=== PATIENT | male | born 1950 | race Caucasian/White ===

== ENCOUNTER 2023-08-14 16:27 | Emergency (ER) | payer MEDICARE, OTHER ==
--- NOTE | 2023-08-14 17:00 | ED Physician Documentation ---
History of Present Illness - Stated complaint Stated Complaint: FALL/LT WRIST PX - Chief complaint Chief Complaint: Trauma Ext - History obtained from History obtained from: Patient, Family - History of Present Illness Timing: Today Pain level max: 6 Pain level now: 5 - Additonal information Additional information: 73-year-old male presents to the emergency department after a fall while playing tennis today. This occurred about 2 hours prior to arrival. Complains of pain to the left wrist. Does not believe he struck his head but did roll backwards onto the court. No loss of consciousness. Not on blood thinners. No neck or back pain. No numbness or tingling. The pain to the left wrist is worse with movement and better with rest. He is right-handed. He is currently undergoing treatment for prostate cancer in a clinical trial at [facility] No seizure activity. No changes in mental status. Review of Systems Constitutional: denies: Fever, Chills GI: denies: Vomiting, Diarrhea Skin: denies: Rash Musculoskeletal: denies: Neck pain, Back pain Neurologic: denies: Focal weakness, Numbness, Seizure, Confused, Altered mental status, Headache, LOC PD PAST MEDICAL HISTORY - Past Medical History Past Medical History: Yes : Other Other Past Medical History: Prostate cancer, skin cancer - Past Surgical History HEENT: Tonsil/Adenoidectomy Derm: Skin cancer surgery - Allergies Allergies/Adverse Reactions: Allergies Allergy/AdvReac Type Severity Reaction Status Date / Time No Known Drug Allergies Allergy Verified 08/14/23 16:39 - Social History Does the pt smoke?: No Smoking Status: Never smoker Does the pt drink ETOH?: Yes Does the pt have substance abuse?: No PD ED PE NORMAL - Vitals Vital signs reviewed: Yes - General General: Alert and oriented X 3, No acute distress - HEENT HEENT: Atraumatic (No scalp hematomas. No palpable skull fractures), PERRL, EOM I, Moist mucous membranes - Neck Neck: Supple, no meningeal sign, No bony TTP - Cardiac Cardiac: RRR, Strong equal pulses - Respiratory Respiratory: No respiratory distress, Clear bilaterally - Abdomen Abdomen: Soft, Non tender, Non distended - Back Back: No spinal TTP - Derm Derm: Warm and dry - Extremities Extremities: Other (Tender to palpation over the dorsum of the left wrist. No gross deformity. Neurovascular intact. No snuffbox tenderness. Otherwise normal examination of the left upper extremity and hand. Rings removed) - Neuro Neuro: Alert and oriented X 3 - Psych Psych: Normal mood, Normal affect Results - Vitals Vitals: Vital Signs - 24 hr 08/14/23 08/14/23 16:32 18:47 Temperature 36.5 C Heart Rate 77 62 Respiratory 16 18 Rate Blood Pressure 125/72 136/72 H O2 Saturation 99 100 Oxygen O2 Source Room air - Labs Labs: Laboratory Tests 08/14/23 08/14/23 08/14/23 18:09 18:09 18:09 WBC 11.9 H RBC 3.94 L Hgb 12.5 L Hct 38.8 L MCV 98.5 H MCH 31.7 H MCHC 32.2 RDW 12.6 Plt Count 210 MPV 9.5 Neut # (Auto) 10.2 H Lymph # (Auto) 0.9 L Ponce # (Auto) 0.7 Eos # (Auto) 0.0 Baso # (Auto) 0.0 Absolute Nucleated RBC 0.00 Nucleated RBC % 0.0 PT 10.8 INR 1.0 Sodium 140 Potassium 4.1 Chloride 107 Carbon Dioxide 26 Anion Gap 7.0 BUN 16 Creatinine 0.8 Estimated GFR (MDRD) 95 Glucose 139 H Calcium 9.8 Total Bilirubin 0.5 AST 20 ALT 21 Alkaline Phosphatase 54 Total Protein 6.8 Albumin 4.3 Globulin 2.5 Albumin/Globulin Ratio 1.7 - Rads (name of study) Left wrist x-ray Relevant Findings:: Final report received, See rad report Head CT Relevant Findings:: Final report received, See rad report Procedures - Splint (location) - Minor L wrist Splint applied by: Physician, Nurse, Tech Type of splint: Fiberglass, Short arm, Volar cock up Other: Patient tolerated well, No complications, Neurovascular intact, Sling provided PD Medical Decision Making - ED course Complexity details: reviewed results, re-evaluated patient, considered differential, d/w patient, d/w cardiology consultants ED course: The patient's distal radius fracture was splinted in a volar splint. Tolerated well. Declines any pain medication. Neurovascularly intact after splint application. Also found to have a very small intraparenchymal hemorrhage. No midline shift. Not on blood thinners. GCS 15. No headache. Discussed the ca se with neurosurgery at [facility]. They recommend a repeat head CT in 4 to 6 hours. They state that if it is stable, they do not need to call back, he can follow-up with his doctor as an outpatient. If it is increasing in size or changing, the plan will be to call back [facility]. Patient can follow-up with orthopedics regarding the distal radius fracture. May need surgery. Patient is signed out to Dr. Salmon awaiting repeat head CT. This document was made in part using voice recognition software. While efforts are made to proofread this document, sound alike and grammatical errors may occur. PROCEDURE: Head WO INDICATIONS: fall, head injury TECHNIQUE: Noncontrast 4.5 mm thick angled axial sections acquired from the foramen magnum to the vertex. For radiation dose reduction, the following was used: automated exposure control, adjustment of mA and/or kV according to patient size. COMPARISON: None. FINDINGS: Image quality: Excellent. CSF spaces: Basal cisterns are patent. No extra-axial fluid collections. Ventricles are normal in size and shape. Brain: No midline shift. 1.1 cm focus of faint hyperdensity within the superior right frontal lobe series 2 image 19.. Burris-white matter interface is normal. Skull and face: Calvarium and visualized facial bones are intact, without suspicious lesions. Sinuses: Visualized sinuses and mastoids are clear. IMPRESSION: 1.1 cm focus of faint hyperdensity in the right superior frontal lobe most consistent with intraparenchymal hemorrhage. Departure - Departure Clinical Impression: Distal radius fracture, left Qualifiers: Encounter type: initial encounter Fracture type: closed Fracture morphology: unspecified fracture morphology Qualified Code(s): S52.502A - Unspecified fracture of the lower end of left radius, initial encounter for closed fracture Intraparenchymal hematoma of brain Qualifiers: Encounter type: initial encounter Laterality: right Loss of consciousness presence/duration: without LOC Qualified Code(s): S06.310A - Contusion and laceration of right cerebrum without loss of consciousness, initial encounter Condition: Good Instructions: ED Fx Upper Ext Follow-Up: [facility] [Provider Group] your,doctor in 1 week [Other] Forms: PCP List
--- NOTE | 2023-08-14 17:39 | CT Report ---
PROCEDURE: Head WO INDICATIONS: fall, head injury TECHNIQUE: Noncontrast 4.5 mm thick angled axial sections acquired from the foramen magnum to the vertex. For r adiation dose reduction, the following was used: automated exposure control, adjustment of mA and/or kV according to patient size. COMPARISON: None. FINDINGS: Image quality: Excellent. CSF spaces: Basal cisterns are patent. No extra-axial fluid collections. Ventricles are normal in size and shape. Brain: No midline shift. 1.1 cm focus of faint hyperdensity within the superior right frontal lobe s eries 2 image 19.. Burris-white matter interface is normal. Skull and face: Calvarium and visualized facial bones are intact, without suspicious lesions. Sinuses: Visualized sinuses and mastoids are clear. IMPRESSION: 1.1 cm focus of faint hyperdensity in the right superior frontal lobe most consistent with intraparen chymal hemorrhage. The above findings were discussed with Dr. Martín Ruff on 08/14/2023 at 5:35pm. Reviewed by: Lolita Tee MD on 08/14/2023 5:38 PM PDT Approved by: Lolita Tee MD on 08/14/2023 5:38 PM PDT Station ID: [id number]
--- NOTE | 2023-08-14 17:40 | XRAY Report ---
PROCEDURE: Wrist 3+V LT INDICATIONS: L wrist pain s/p fall TECHNIQUE: 3 views of the wrist were acquired. COMPARISON: None. FINDINGS: Bones: Comminuted distal radial metaphyseal fracture with intra-articular extension.. No suspicious bony lesions. Soft tissues: No suspicious soft tissue calcifications or masses. IMPRESSION: Comminuted distal intra-articular radial metaphyseal fracture. Reviewed by: Lolita Tee MD on 08/14/2023 5:39 PM PDT Approved by: Lolita Tee MD on 08/14/2023 5:39 PM PDT Station ID: [id number]
[2023-08-14 18:12] LABS: BASOPHILS % (AUTO) 0.3 %; EOSINOPHILS % (AUTO) 0.1 %; HCT - HEMATOCRIT 38.8 % (42.0-52.0); HGB - HEMOGLOBIN 12.5 g/dL (14.0-18.0); LYMPHOCYTES # (AUTO) 0.9 10^3/uL (1.5-3.5); LYMPHOCYTES % (AUTO) 7.9 %; MEAN CORPUSCULAR HEMOGLOBIN 31.7 pg (27.0-31.0); MEAN CORPUSCULAR HGB CONC 32.2 g/dL (32.0-36.0); MEAN CORPUSCULAR VOLUME 98.5 fL (80.0-94.0); MEAN PLATELET VOLUME 9.5 fL (7.4-11.4); MONOCYTES # (AUTO) 0.7 10^3/uL (0.0-1.0); MONOCYTES % (AUTO) 5.6 %; NEUTROPHILS # (AUTO) 10.2 10^3/uL (1.5-6.6); NEUTROPHILS % (AUTO) 85.8 %; PLT - PLATELET COUNT 210 10^3/uL (130-450); RED BLOOD COUNT 3.94 10^6/uL (4.70-6.10); RED CELL DISTRIBUTION WIDTH 12.6 % (12.0-15.0); WHITE BLOOD COUNT 11.9 x10^3/uL (4.8-10.8)
[2023-08-14 18:17] LABS: PT - PROTHROMBIN TIME 10.8 secs (9.9-12.6)
[2023-08-14 18:29] LABS: ALBUMIN 4.3 g/dL (3.2-5.5); ALBUMIN/GLOBULIN RATIO 1.7 (1.0-2.2); BILIRUBIN,TOTAL 0.5 mg/dL (0.2-1.0); CALCIUM 9.8 mg/dL (8.5-10.3); CREATININE 0.8 mg/dL (0.6-1.3); POTASSIUM 4.1 mmol/L (3.5-4.5); TOTAL PROTEIN 6.8 g/dL (6.4-8.9)
--- NOTE | 2023-08-14 22:51 | CT Report ---
PROCEDURE: Head WO INDICATIONS: GLF, possible bleed TECHNIQUE: Noncontrast 4.5 mm thick angled axial sections acquired from the foramen magnum to the vertex. For r adiation dose reduction, the following was used: automated exposure control, adjustment of mA and/or kV according to patient size. COMPARISON: Exam performed earlier the same day, 1702 hours. FINDINGS: Image quality: Excellent. CSF spaces: Basal cisterns are patent. No extra-axial fluid collections. Ventricles are normal in size and shape. Brain: Mild hyperdensity in the right periventricular frontal white matter is redemonstrated, stable in size and density. There is no developing sulcal effacement. No developing subarachnoid or intraven tricular hemorrhage. No other mass or mass effect. Burris-white matter to a gestational remains normal. Skull and face: Calvarium and visualized facial bones are intact, without suspicious lesions. Sinuses: Visualized sinuses and mastoids are clear. IMPRESSION: Stable right frontal lobe white matter hyperdensity, hemorrhage versus calcification. Given history o f trauma, this may be hemorrhage of underlying mass is not excluded. Clinical follow-up is recommended and if this finding persists, MR imaging with contrast is recommend ed for further evaluation. No other CT evidence of acute trauma. Reviewed by: Cortney Germain MD on 08/14/2023 10:50 PM PDT Approved by: Cortney Germain MD on 08/14/2023 10:50 PM PDT Station ID: [id number]
[2023-08-14 23:51] VITALS: BP 124/73; O2SAT 97
--- NOTE | 2023-08-24 12:59 | ED Physician Documentation ---
ED Addendum - Addendum Addendum: 08/24/23 12:57 The patient was signed out to me at change of shift, pending repeat head CT at 2200 after falling and being found to have a small intracranial hemorrhage on initial CT. The patient's case was discussed by the previous emergency physician with neurosurgery at /[facility], and neurosurgery stated that the patient could have a 6-hour CT and if no change, could be discharged home safely. The patient had no complaints in the ED. His repeat head CT was negative for any change and showed the bleeding to be stable. The patient was stable for discharge. We have discussed home management of the symptoms as well as usual indications for return. Final impression: See original note Disposition: Discharged home in stable condition.
== END 2023-08-14 23:52 | disposition home or self-care (01) ==
LOC: ED 16:27
DX: S06.310A Contusion and laceration of right cerebrum without loss of consciousness, initial encounter (principal); S52.502A Unspecified fracture of the lower end of left radius, initial encounter for closed fracture; W18.39XA Other fall on same level, initial encounter; Y93.73 Activity, racquet and hand sports; Z85.46 Personal history of malignant neoplasm of prostate; Z85.828 Personal history of other malignant neoplasm of skin
CPT/HCPCS: 29125; 36415; 80053; 85025; 85610; 99284